=== PATIENT | male | born 1970 | race Caucasian/White ===

== ENCOUNTER 2022-11-15 11:29 | Emergency (ER) | payer MEDICARE, SELFPAY ==
--- NOTE | ~2022-11-15 | XR_ITS ---
XR chest 2V DATE: 11/15/2022 11:56 INDICATION: Cough for one week TECHNIQUE: 2 views COMPARISON: None FINDINGS: Normal heart size. No hilar or mediastinal enlargement. No pulmonary infiltrate or consolidation, pleural effusion or pulmonary vascular congestion or pneumo thorax is detected. Included skeletal structures are unremarkable. IMPRESSION: No active cardiopulmonary disease Reviewed, dictated and finalized at location A.
[2022-11-15 11:43] VITALS: BP 123/59; PULSE 84; RESP 16; TEMP 37; O2SAT 100
--- NOTE | 2022-11-15 12:25 | ED.GENADULT ---
HPI - General Adult General Chief complaint: Upper Respiratory Infection Stated complaint: cough/fever/congestion Source: family Mode of arrival: ambulatory Limitations: dementia History of Present Illness HPI narrative: Pt brought in by sister with reports of sick symptoms for the past week. Primary symptom is cough. He has an underlying hx of dementia and baseline orientation status is oriented to person sometimes(only first name) but not oriented to place or time. Sister indicates that patient lives with her and has been somewhat more confused since the time of symptom onset. He has been pointing at his mouth, which she suspects means that he has a sore throat. No vomiting, diarrhea, shortness of breath. He is not taking any medications for his symptoms. Related Data Home Medications Medication Instructions Recorded Confirmed citalopram 20 mg tablet mg 11/15/22 memantine 10 mg tablet mg 11/15/22 Allergies Allergy/AdvReac Type Severity Reaction Status Date / Time No Known Allergies Allergy Verified 11/15/22 11:48 Review of Systems Review of Systems: ROS unobtainable: Yes unobtainable due to mental status (dementia) PMFSH Past Medical History Medical History Dementia Surgical History Surgical History No pertinent past surgical history Family History Family History Mother Family history non-contributory Social History Social History Living arrangements: with family Gender identity (if verbalized by the patient): Male Spiritual care concerns: No Exam Narrative: GENERAL: Well-appearing, well-nourished, and in no acute distress. HEAD: Normocephalic, atraumatic. EYES: PERRLA and EOMI. ENT: Nares clear, no rhinorrhea or epistaxis. Mucous membranes moist. Oropharynx without tonsillar hypertrophy exudate or other lesions. Bilateral TMs pearly mcmahan nonbulging NECK: Supple. No adenopathy or masses. No carotid bruits or JVD CHEST: Clear to auscultation. No respiratory distress. No wheezes rales or rhonchi HEART: Regular rate and rhythm. No murmur heard. Normal peripheral pulses. ABDOMEN: Soft, nontender, nondistended, normal active bowel sounds. EXTREMITIES: Normal range of motion. No edema. SKIN: Warm, dry, no rash. NEURO: No focal deficits. Alert. Not oriented to place or time. Unable to assess orientation to self as he does not answer when I inquire PSYCH: Normal mood and affect. Course Course Emergency Course: This is a 52-year-old male who presented for evaluation of sick symptoms. COVID and strep were negative. Chest x-ray normal. Influenza A positive. Will treat with Tamiflu. His sister feels comfortable bringing him home. I advised that if he has persistent or worsening respiratory symptoms/confusion she should take him to the hospital. She is in agreement with plan of care. Level of Care: Express Care Visit Vital Signs Vital signs: Vital Signs Temperature 37.0 C 11/15/22 11:43 Pulse Rate 84 11/15/22 11:43 Respiratory Rate 16 11/15/22 11:43 Blood Pressure 123/59 L 11/15/22 11:43 Pulse Oximetry 100 11/15/22 11:43 Oxygen Delivery Room Air 11/15/22 11:43 Temperature 37.0 C 11/15/22 11:43 Pulse Rate 84 11/15/22 11:43 Respiratory Rate 16 11/15/22 11:43 Blood Pressure 123/59 L 11/15/22 11:43 Pulse Oximetry 100 11/15/22 11:43 Oxygen Delivery Room Air 11/15/22 11:43 Medical Decision Making Vital Signs Vital Signs: Vital Signs Temperature 37.0 C 11/15/22 11:43 Pulse Rate 84 11/15/22 11:43 Respiratory Rate 16 11/15/22 11:43 Blood Pressure 123/59 L 11/15/22 11:43 Pulse Oximetry 100 11/15/22 11:43 Oxygen Delivery Room Air 11/15/22 11:43 Temperature 37.0 C
== END 2022-11-15 12:44 | disposition home or self-care (01) ==
PROVIDERS: Emergency Provider Nurse Practitioner; PCP Physician Assistant
DX: J10.1 Influenza due to other identified influenza virus with other respiratory manifestations (principal); Z20.822 Contact with and (suspected) exposure to COVID-19; F03.90 Unspecified dementia, unspecified severity, without behavioral disturbance, psychotic disturbance, mood disturbance, and anxiety
CPT/HCPCS: 71046; 87081; 87426; 87804; 87880; 99213; C9803; G0463